=== PATIENT | female | born 1975 | race Caucasian/White ===

== ENCOUNTER 2021-04-10 07:30 | Outpatient (CLI) | payer OTHER | END 2021-04-10 07:31 | disposition home or self-care (01) | LOC: CSHCT 07:30 | PROVIDERS: ATTEND Family Medicine | DX: R10.33 Periumbilical pain (principal); R19.09 Other intra-abdominal and pelvic swelling, mass and lump | CPT/HCPCS: 74177 ==

== ENCOUNTER 2024-05-16 08:24 | Outpatient (CLI) | payer OTHER | END 2024-05-16 08:25 | disposition home or self-care (01) | LOC: CSHSLEEP 08:24 | PROVIDERS: ATTEND Family Medicine | DX: G47.33 Obstructive sleep apnea (adult) (pediatric) (principal); R53.83 Other fatigue; R09.89 Other specified symptoms and signs involving the circulatory and respiratory systems; R51.9 Headache, unspecified; R06.83 Snoring; G47.00 Insomnia, unspecified | CPT/HCPCS: 95811 ==